=== PATIENT | male | born 1950 | race Caucasian/White ===

== ENCOUNTER → 2017-06-19 | Outpatient (CLI) | payer OTHER ==
--- NOTE | 2017-06-20 09:30 | RADRPT ---
EXAM DATE/TIME: 06/19/2017 13:34 [place] COMPARISON: No previous studies available for comparison. INDICATIONS : Tremors for 2 years. DOSE: 5.4 mCi Ioflupane Iodine-123 in 2.5 ml total volume MEDICATION(S): 130 mg Potasium Iodine PO one hour prior to injection SPECT IMAGIN hrs IMAGNG: SPECT/CT imaging with fusion was performed. RADIATION DOSE: 30.27 CTDIvol (mGy) MEDICAL HISTORY : Hypertension. SURGICAL HISTORY : Prostrate surgery. ENCOUNTER: Initial ACUITY: >1 yr PAIN SCALE: 3/10 LOCATION: Head. TECHNIQUE: SPECT imaging of the brain was performed in sagittal, axial and coronal planes. Attenuation correctio n was performed with computed tomography and both the attenuation correction and non-attenuation amy ected data sets were reviewed. FINDINGS: There is normal biodistribution of radionuclide with symmetric crescent-shaped areas of activity are in the striatum which appears distinct relative to the surrounding brain tissue. CONCLUSION: 1. Normal dopamine transporter scan Lenard Anderson MD on June 20, 2017 at 9:27 Board Certified Radiologist. This report was verified electronically.
== END ==
LOC: HRAD 08:37
DX: R25.1 Tremor, unspecified (principal)
CPT/HCPCS: 78607; A9584